=== PATIENT | female | born 1975 | race Caucasian/White ===

== ENCOUNTER 2019-08-07 06:28 | Emergency (ER) | payer SELFPAY ==
[~2019-08-07] VITALS: Ht 167.6 cm; Wt 77.1 kg
[~2019-08-07 06:28] MED LIST: CIPR500 PO; Crutch1 EACH MISC; HYDACE5 PO; HYDACE5325 PO; IBUP800; IBUP800 PO; Norco 10-325 T1 EACH PO; ONDA4ODT MM; ONDA8ODT MM; RXHYDACE PO; RXONDA4ODT MM; [UNRECOGNIZED DRUG - REMARK]
[2019-08-07 07:02] LABS: BASOPHILS ABSOLUTE AUTO 0.03 K/mm3 (0.00-0.23); BASOPHILS PERCENT AUTO 0 % (0-2); EOSINOPHILS ABSOLUTE AUTO 0.19 K/mm3 (0.00-0.68); EOSINOPHILS PERCENT AUTO 3 % (0-6); Hemoglobin 15.9 g/dL (11.5-16.0); IMMATURE GRAN ABSOLUTE AUTO 0.01 K/mm3 (0.00-0.10); IMMATURE GRAN PERCENT AUTO 0 % (0-1); LYMPHOCYTES ABSOLUTE AUTO 2.51 K/mm3 (0.84-5.20); LYMPHOCYTES PERCENT AUTO 36 % (21-46); MONOCYTES ABSOLUTE AUTO 0.67 K/mm3 (0.16-1.47); MONOCYTES PERCENT AUTO 10 % (4-13); Mean Corpuscular HGB 30.3 pg (26.0-34.0); Mean Corpuscular HGB Conc 33.1 g/dL (31.5-36.5); Mean Corpuscular Volume 92 fL (80-100); Mean Platelet Volume 9.3 fL (9.1-12.4); NEUTROPHILS PERCENT AUTO 51 % (41-73); Platelet Count 347 K/mm3 (150-400); RDW Coefficient Variation 12.4 % (11.7-14.2); RDW Standard Deviation 42.1 fL (35.1-46.3); Red Blood Cell Count 5.24 M/mm3 (3.80-5.20); White Blood Cell Count 6.91 K/mm3 (4.00-11.30)
[2019-08-07 07:27] LABS: Alanine Aminotransfer (ALT/SGP 176 U/L (12-78); Albumin, Blood 3.9 g/dL (3.4-5.0); Albumin/Globulin Ratio 0.9 (0.8-1.8); Alk Phos 102 U/L (50-136); Anion Gap 2 mmol/L (6-16); Aspartate Aminotrans (AST/SGOT 122 U/L (12-37); Bilirubin, Total 0.5 mg/dL (0.1-1.0); Blood Urea Nitrogen 14 mg/dL (8-24); Bun/Creatinine Ratio 14.4 (12.0-20.0); C-REACTIVE PROTEIN, EXT RANGE <0.290 mg/dL (0.000-0.300); CO2, Blood 32 mmol/L (21-32); Calcium, Blood 8.8 mg/dL (8.5-10.1); Chloride, Blood 106 mmol/L (98-108); Creatinine, Blood 0.97 mg/dL (0.40-1.00); Globulin, Blood 4.3 g/dL (2.2-4.0); Glomerular Filtration Rate >60 (60-); Glucose, Blood 120 mg/dL (70-99); Sodium, Blood 140 mmol/L (136-145); Total Protein, Blood 8.2 g/dL (6.4-8.2)
[2019-08-07] MEDS ORDERED: BACTRIM DS TAB1 EAC1 PO (07:39)
[2019-08-07] MEDS ORDERED: IBUP800 PO (07:39)
== END 2019-08-07 08:07 | disposition home or self-care (01) ==
LOC: ER 06:28
PROVIDERS: Emergency Medicine
DX: L03.114 Cellulitis of left upper limb (principal); R94.5 Abnormal results of liver function studies; F17.200 Nicotine dependence, unspecified, uncomplicated; Z88.5 Allergy status to narcotic agent; Z79.1 Long term (current) use of non-steroidal anti-inflammatories (NSAID)
CPT/HCPCS: 36415; 80053; 85025; 85651; 86140; 96365; 96375; 99283-25; J1100; J2405; J3010; J7030

== ENCOUNTER 2020-10-17 20:26 | Emergency (ER) | payer OTHER ==
[~2020-10-17] VITALS: Ht 167.6 cm; Wt 86.2 kg
[~2020-10-17 20:26] MED LIST changes: +BACTRIM DS TAB1 EAC1 PO
[2020-10-17 21:36] LABS: Source, Urine Clean Catch
[2020-10-17 21:39] LABS: BASOPHILS ABSOLUTE AUTO 0.03 K/mm3 (0.00-0.23); BASOPHILS PERCENT AUTO 0 % (0-2); EOSINOPHILS ABSOLUTE AUTO 0.08 K/mm3 (0.00-0.68); EOSINOPHILS PERCENT AUTO 1 % (0-6); Hematocrit 46.1 % (33.0-51.0); Hemoglobin 15.6 g/dL (11.5-16.0); IMMATURE GRAN ABSOLUTE AUTO 0.02 K/mm3 (0.00-0.10); IMMATURE GRAN PERCENT AUTO 0 % (0-1); LYMPHOCYTES ABSOLUTE AUTO 2.04 K/mm3 (0.84-5.20); LYMPHOCYTES PERCENT AUTO 29 % (21-46); MONOCYTES ABSOLUTE AUTO 0.53 K/mm3 (0.16-1.47); MONOCYTES PERCENT AUTO 7 % (4-13); Mean Corpuscular HGB 30.6 pg (26.0-34.0); Mean Corpuscular HGB Conc 33.8 g/dL (31.5-36.5); Mean Corpuscular Volume 90 fL (80-100); Mean Platelet Volume 9.3 fL (9.1-12.4); NEUTROPHILS ABSOLUTE AUTO 4.42 K/mm3 (1.96-9.15); NEUTROPHILS PERCENT AUTO 62 % (41-73); Platelet Count 340 K/mm3 (150-400); RDW Coefficient Variation 12.4 % (11.7-14.2); RDW Standard Deviation 41.6 fL (35.1-46.3); White Blood Cell Count 7.12 K/mm3 (4.00-11.30)
[2020-10-17 21:43] LABS: Bilirubin, Urine Neg (Neg); Blood, Urine 5+ (Neg); Glucose Qualitative, Urine Neg (Neg); Ketones, Urine 2+ (Neg); Leukocyte Esterase, Urine 1+ (Neg); Nitrite, Urine Neg (Neg); Protein, Urine 4+ (Neg); Urobilinogen, Urine NORM (Normal); pH, Urine 6.5 (5.0-8.0)
[2020-10-17 21:53] LABS: Appearance, Urine Turbid (Clear); Color, Urine Red (P-Yellow)
[2020-10-17 21:54] LABS: Bacteria Few /hpf; Red Blood Cells, Urine TNTC /hpf (0-2); Squamous Epithelial Cells Few /hpf (Few); White Blood Cells, Urine 0-2 /hpf (0-5)
[2020-10-17 22:16] LABS: Albumin, Blood 3.9 g/dL (3.4-5.0); Bilirubin, Total 0.5 mg/dL (0.1-1.0); Bun/Creatinine Ratio 16.2 (12.0-20.0); Calcium, Blood 9.3 mg/dL (8.5-10.1); Creatinine, Blood 1.05 mg/dL (0.40-1.00); Globulin, Blood 4.1 g/dL (2.2-4.0); Potassium, Blood 4.3 mmol/L (3.5-5.5)
[2020-10-18] MEDS ORDERED: Norco 5-325 Ta1 EACH PO (00:05)
[2020-10-18] MEDS ORDERED: ONDA4ODT MM (00:05)
[2020-10-18] MEDS ORDERED: Flomax0.4 MG PO (00:05)
== END 2020-10-18 00:45 | disposition home or self-care (01) ==
LOC: ER 20:26
PROVIDERS: Physician Assistant
DX: N13.2 Hydronephrosis with renal and ureteral calculous obstruction (principal); F17.210 Nicotine dependence, cigarettes, uncomplicated; Z88.5 Allergy status to narcotic agent
CPT/HCPCS: 36415; 74176; 80053; 81001; 81025; 83690; 85025; 96374; 96375; 99284-25; A9270; J1885; J2405; J3010

== ENCOUNTER → 2022-08-18 | Outpatient (CLI) | payer OTHER ==
[~2022-08-18] MED LIST changes: +Flomax0.4 MG PO; +Norco 5-325 Ta1 EACH PO
[2022-08-23 17:10] LABS: HCV LOG10 6.698 (.); HEPATITIS C GENOTYPE 3 (.); HEPATITIS C QUANTITATION 4990000 IU/mL (.)
== END | disposition home or self-care (01) ==
LOC: LAB 19:05 → LAB SHORT 19:05
PROVIDERS: Registered Nurse Community Health
DX: Z11.59 Encounter for screening for other viral diseases (principal)
CPT/HCPCS: 87522; 87902

== ENCOUNTER → 2022-09-12 | Outpatient (CLI) | payer OTHER ==
[2022-09-12 14:54] LABS: International Normalized Ratio 0.95
[2022-09-12 14:56] LABS: BASOPHILS ABSOLUTE AUTO 0.02 K/mm3 (0.00-0.23); BASOPHILS PERCENT AUTO 0 % (0-2); EOSINOPHILS PERCENT AUTO 2 % (0-6); Hematocrit 45.1 % (33.0-51.0); Hemoglobin 15.4 g/dL (11.5-16.0); IMMATURE GRAN ABSOLUTE AUTO 0.01 K/mm3 (0.00-0.10); IMMATURE GRAN PERCENT AUTO 0 % (0-1); LYMPHOCYTES ABSOLUTE AUTO 2.25 K/mm3 (0.84-5.20); LYMPHOCYTES PERCENT AUTO 40 % (21-46); MONOCYTES ABSOLUTE AUTO 0.51 K/mm3 (0.16-1.47); MONOCYTES PERCENT AUTO 9 % (4-13); Mean Corpuscular HGB 30.4 pg (26.0-34.0); Mean Corpuscular HGB Conc 34.1 g/dL (31.5-36.5); Mean Corpuscular Volume 89 fL (80-100); Mean Platelet Volume 9.6 fL (9.1-12.4); NEUTROPHILS ABSOLUTE AUTO 2.78 K/mm3 (1.96-9.15); NEUTROPHILS PERCENT AUTO 49 % (41-73); Platelet Count 313 K/mm3 (150-400); RDW Coefficient Variation 12.8 % (11.7-14.2); RDW Standard Deviation 41.9 fL (35.1-46.3); Red Blood Cell Count 5.07 M/mm3 (3.80-5.20); White Blood Cell Count 5.67 K/mm3 (4.00-11.30)
[2022-09-12 15:22] LABS: Albumin, Blood 3.8 g/dL (3.4-5.0); Bilirubin, Total 0.5 mg/dL (0.1-1.0); Bun/Creatinine Ratio 17.8 (12.0-20.0); Calcium, Blood 8.7 mg/dL (8.5-10.1); Creatinine, Blood 1.07 mg/dL (0.40-1.00); Follicle Stimulating Hormone 58.6 mIU/ml; Free Thyroxine 1.11 ng/dL (0.70-1.60); Globulin, Blood 3.8 g/dL (2.2-4.0); Luteinizing Hormone 28.3 mIU/ml; Potassium, Blood 4.1 mmol/L (3.5-5.5); Prolactin 10.3 ng/mL; Thyroid Stimulating Hormone 7.37 uIU/mL (0.360-4.800); Total Protein, Blood 7.6 g/dL (6.4-8.2)
[2022-09-14 05:10] LABS: HEP B CORE AB, TOT Negative (Negative)
[2022-09-14 08:10] LABS: ESTRADIOL 12.5 pg/mL (.)
[2022-09-15 11:11] LABS: HIV AB/P24 AG SCREEN Non Reactive (Non Reactive)
[2022-09-16 14:10] LABS: HPV 16 Negative (Negative); HPV 18 Negative (Negative); HPV OTHER HR TYPES Negative (Negative)
[2022-09-16 21:11] LABS: ALT (SGPT) P5P 82 IU/L (0-40); APOLIPOPROTEIN A-1 91 mg/dL (116-209); BILIRUBIN, TOTAL 0.3 mg/dL (0.0-1.2); GGT 31 IU/L (0-60); HAPTOGLOBIN 166 mg/dL (42-296); NECROINFLAMMAT ACTIVITY GRADE A1-A2 (.); NECROINFLAMMAT ACTIVITY SCORE 0.45 (0.00-0.17)
== END ==
LOC: LAB 13:43 → LAB SHORT 13:43
PROVIDERS: Family Medicine
DX: B19.20 Unspecified viral hepatitis C without hepatic coma (principal); E28.319 Asymptomatic premature menopause
CPT/HCPCS: 36415; 80053; 81596; 82670; 83001; 83002; 84146; 84439; 84443; 85025; 85610; 86704; 86708; 87389; 87624; G0145

== ENCOUNTER → 2022-10-29 | Outpatient (CLI) | payer OTHER ==
[2022-10-29 22:04] LABS: Albumin, Blood 3.6 g/dL (3.4-5.0); Albumin/Globulin Ratio 0.9 (0.8-1.8); Bilirubin, Total 0.4 mg/dL (0.1-1.0); Calcium, Blood 8.8 mg/dL (8.5-10.1); Creatinine, Blood 1.13 mg/dL (0.40-1.00); Potassium, Blood 4.1 mmol/L (3.5-5.5); Thyroid Stimulating Hormone 4.76 uIU/mL (0.360-4.800); Total Protein, Blood 7.6 g/dL (6.4-8.2)
== END ==
LOC: LAB 16:30 → LAB SHORT 16:30
PROVIDERS: Family Medicine
DX: B19.20 Unspecified viral hepatitis C without hepatic coma (principal); E03.9 Hypothyroidism, unspecified
CPT/HCPCS: 80053; 84443